=== PATIENT | female | born 1980 ===

== ENCOUNTER 2023-10-15 09:49 | Outpatient (AMB) | payer OTHER, SELFPAY ==
[2023-10-15 09:57] VITALS: BP 100/60; PULSE 66; O2SAT 98; BMI 20.4
--- NOTE | 2023-10-15 09:57 | MHC.PC.OV ---
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 Intake Note: pt is here to est care and for a PE pt says last pap was 5-6 years ago Is last menstrual period known: Yes (pt says 5-6 years ago ) Allergies No Known Allergies Allergy (Verified 11/11/23 02:58) Medication List - Last Reconciled 11/11/23 by Rosaura Saini MD acetaminophen (Acetaminophen Extra Strength) 1,000 mg PO Q6H PRN ibuprofen (IBU-200) 200 mg PO Q6H PRN mirabegron ER 25 mg PO DAILY Tobacco use date assessed: 10/15/23 Dental Screening Dental Screen Date: 10/15/23 Did you have a dental visit in the last 12 months?: No Did you have a dental problem in the last 6 months where you did not have access to dental care?: No Was dental information given to patient?: No HPI 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 She is new to the practice, has history uterine fibroids status post TAHBSO in [facility] in 2018. She is complaining today of urinary leakage specially when she coughs or sneezes or sometimes would get accidents whenever she has to hold her urine for a long time. She is also complaining of recurrent pain and stiffness in lower back and both knees, right more than the left. No history of trauma. [facility] Medical History (Updated 10/15/23 @ 10:54 by Rosaura Saini MD) Mixed stress and urge urinary incontinence Knee pain, bilateral Chronic low back pain History of uterine fibroid Surgical History (Updated 10/15/23 @ 10:37 by Rosaura Saini MD) History of exploratory laparotomy Status post total abdominal hysterectomy and bilateral salpingo-oophorectomy (SHANNON-BSO) Social History Housing: Unknown / Unable to assess Patient Tobacco Use Status: Never used Tobacco e-Cigarette/Vaping Use: Never Used Second Hand Smoke Exposure: No service: No Current occupational status: disabled Cognitive needs: No Hearing needs: No Vision needs: No Questionnaire PHQ-9 Over the last 2 weeks, how often have you been bothered by any of the following problems? 1. Little interest or pleasure in doing things: not at all 2. Feeling down, depressed, or hopeless: not at all 3. Trouble falling or staying asleep, or sleeping too much: not at all 4. Feeling tired or having little energy: not at all 5. Poor appetite or overeating: not at all 6. Feeling bad about yourself - or that you are a failure or have let yourself or your family down: not at all 7. Trouble concentrating on things, such as reading the newspaper or watching television: not at all 8. Moving or speaking so slowly that other people could have noticed. Or the opposite - being so fidgety or restless that you have been moving around a lot more than usual: not at all 9. Thoughts that you would be better off or of hurting yourself in some way: not at all Total score: 0 Depression Screening Interpretation: Negative Depression Screening Done: Yes 10755 - PHQ-9 Billing: Yes Source: Developed by Drs. Juan Jose Higuera, Stefania Yeager, Leighton Villaseñor and colleagues, with an educational myah from [employer]. Thrive Questionnaire Date Thrive assessed: 10/15/23 I am a: Patient What is your living situation today?: I do not have a steady places to live Within the past 12 months, did the food you bought not last and you didn't have the money to get more?: Sometimes True Within the past 12 months, did you worry whether your food would run out before you got money to buy more?: Sometimes True Do you have trouble paying for medicines?: Yes Do you have trouble getting transportation to medical appointments?: Yes Do you have trouble paying your heating and electricity bill?: No Do you have trouble taking care of your child, family member or friend?: No Do you have trouble with day-to-day activities such as bathing, preparing meals, shopping, managing finances, etc.?: Yes Are you currently unemployed and looking for a job?: Yes Are you interested in more education?: No AUDIT C Alcohol Use Questionnaire (AUDIT-C) 1. How often do you have a drink containing alcohol?: Never Total Score: 0 SMITH-7 AMB Questionnaire SMITH-7 Date SMITH - 7 assessed: 10/15/23 Feeling nervous, anxious, or on edge: 0 = Not at all Not being able to stop or control worryin = Not at all Worrying too much about different things: 0 = Not at all Trouble relaxin = Not at all Being so restless that it is hard to sit still: 0 = Not at all Becoming easily annoyed or irritable: 0 = Not at all Feeling afraid as if something awful might happen: 0 = Not at all Total SMITH-7 score (0-4 normal; 5-9 mild; 10-14 moderate; 15-21 severe): 0 Source: Developed by Drs. Juan Jose Higuera, Stefania Yeager, Leighton Villaseñor and colleagues, with an educational myah from [employer]. SMITH-7 Assessment Billing SMITH-7 Assessment Tool: SMITH-7 Assessment 22178 Review of Systems Const Denies body aches, Denies fatigue, Denies fever(s) and Denies weakness Eyes Reports no additional complaints ENT Reports no additional complaints Card Denies chest pain, Denies lightheadedness, Denies palpitations and Denies dyspnea Resp Denies chest congestion, Denies cough, Denies dyspnea and Denies wheezing GI Denies abdominal pain, Denies change in bowel habits and Denies heartburn Denies hematuria, Denies urinary frequency and Denies dysuria Musc Reports as per HPI Skin/Breast Denies breast pain, Denies breast mass, Denies lesions and Denies rash Neuro Denies weakness Psych Reports no additional complaints Endo Denies fatigue, Denies polydipsia, Denies polyuria and Denies palpitations Richard/Lymph Denies easy bruising Aller/Immun Denies seasonal rhinorrhea and Denies wheezing Physical exam (Primary Care) Vital Signs: Last Vital Signs Pulse 66 10/15/23 09:57 BP 100/60 10/15/23 09:57 Pulse Ox 98 10/15/23 09:57 Oxygen Delivery Method Room Air 10/15/23 09:57 BMI result Body Mass Index 20.4 Tobacco/Smoking Status: Tobacco use Status Tobacco use date assessed 10/15/23 10/15/23 10:08 Patient Tobacco Use Status Never used Tobacco 10/15/23 10:08 e-Cigarette/Vaping Use Never Used 10/15/23 10:08 PHQ-9: PHQ-9 Score PHQ-9: Total score 0 10/15/23 10:49 Depression Screening Interpretation: Negative Thrive Assessment: Date of Thrive Assessment Date Thrive assessed 10/15/23 10/15/23 10:21 Const General: comfortable, no acute distress and alert Orientation/consciousness: patient oriented x3 HENMT Ears: external ears normal General nose exam: Normal external nose present and No nasal discharge present Mouth: Normal oral and palatal mucosa present, oropharynx normal and moist mucous membranes Eyes General: appearance normal, both eyes and all related structures Neck Neck: Yes full ROM, Yes no lymphadenopathy and Yes supple Resp Effort & Inspection: normal respiratory effort and able to speak in complete sentences Auscultation: clear to auscultation bilaterally Cardio Rate: regular rate Rhythm: regular rhythm Heart sounds: S1 normal heart sound present and S2 normal heart sound present GI Palpation (GI): Soft to palpation, nontender and no masses Auscultation: normal bowel sounds Back/Spine/Pelvis Back: No back tenderness Skin General skin exam: no rashes or lesions noted Neuro General: patient oriented x3, gait normal, tone normal, moves all extremities, Normal light touch and pain sensation and no focal motor deficits Cranial nerves: Yes CN's II-XII intact bilaterally Cognition (Neuro): normal cognition Extrem General: Yes full ROM, Yes no joint enlargement, Yes no clubbing, cyanosis or edema and Yes no calf tenderness Psych Appearance: grossly normal and well kempt Mental Status: mental status grossly normal Speech and movement: Normal speech and movement present Affect: normal affect Attitude: cooperative Thought process: Normal thought process present Office Procedures Flu Questionnaire Does the patient have a severe egg allergy?: No Does the patient have severe life threatening allergies?: No Does the patient have a fever or illness today?: No Has the patient ever had Guillain-Biloxi Syndrome?: No Has the patient ever had any past reaction to a flu shot?: No Immunizations flu vacc [id number] 6mos up(PF) 60 mcg(15 mcgx4)/0.5 mL IM syringe Performing Provider: Rosaura Saini MD Performing Location: [facility] Administered by: Lucía Penn CMA on 10/15/23 10:19 Dose Route Admin Location Dispensed Lot Number Expiration Date NDC Licensed Guide 0.5 mL IM Right Deltoid 0.5 mL [id number] 05/28/24 06176-013-19 [employer] VIS Given Date VIS Provided VIS Publication Date 10/15/23 Single Vaccine 21 Eligibility Eligibility Date Funding Source Not [facility] Eligible 10/15/23 Private Assessment and Plan Assessment & Plan (1) Mixed stress and urge urinary incontinence: Code(s): N39.46 - Mixed incontinence Plan: Trial of Mirabegron prescription sent, 25 mg per tablet take once a day. Referred to urology for further evaluation (2) Knee pain, bilateral: Code(s): M25.561 - Pain in right knee; M25.562 - Pain in left knee Plan: Ordered x-ray of knees, continue taking Tylenol alternating with ibuprofen as needed every 8 hours pain control. (3) Chronic low back pain: Code(s): M54.50 - Low back pain, unspecified; G89.29 - Other chronic pain Qualifiers: Back pain laterality: bilateral Sciatica laterality: bilateral sciatica Sciatica presence: with sciatica Qualified Code(s): M54.42 - Lumbago with sciatica, left side; M54.41 - Lumbago with sciatica, right side; G89.29 - Other chronic pain Plan: X-ray of lumbar spine ordered with results pending (4) Flu vaccine need: Code(s): Z23 - Encounter for immunization Plan: Flu shot given today Orders: Orders XR lumbar spine 4V min 10/15/23 M25.561 - Pain in right knee, M25.562 - Pain in left knee, M54.50 - Low back pain, unspecified, G89.29 - Other chronic pain XR knee LT 4V 10/15/23 M25.561 - Pain in right knee, M25.562 - Pain in left knee, M54.50 - Low back pain, unspecified, G89.29 - Other chronic pain Influenza [id number] Immunization 10/15/23 Z23 - Encounter for immunization XR knee RT 4V 10/15/23 M25.561 - Pain in right knee, M25.562 - Pain in left knee, M54.50 - Low back pain, unspecified, G89.29 - Other chronic pain Referrals Urology Referral N39.46 - Mixed incontinence Medications: New mirabegron ER 25 mg PO DAILY 30 tabs 0RF N39.46 - Mixed incontinence Coding Level of Care Code New Pt Level 3 (62824) Diagnoses Mixed stress and urge urinary incontinence N39.46 Knee pain, bilateral M25.561; M25.562 Chronic bilateral low back pain with bilateral sciatica M54.42; M54.41; G89.29 Back pain laterality: bilateral Sciatica laterality: bilateral sciatica Sciatica presence: with sciatica Flu vaccine need Z23 Additional Codes SMITH-7 Assessment Billing - SMITH-7 Assessment Tool: SMITH-7 Assessment 41770 ([id number])
== END 2023-10-15 12:01 | disposition home or self-care (01) ==
PROVIDERS: PCP Internal Medicine; Visit Provider Internal Medicine
DX: Z23 Encounter for immunization (principal)
CPT/HCPCS: 90471; 90686; 99203

== ENCOUNTER 2023-10-15 11:07 | Outpatient (REF) | payer OTHER, SELFPAY ==
--- NOTE | ~2023-10-15 | XR_ITS ---
EXAMINATION: XR LUMBAR SPINE XR LEFT KNEE XR RIGHT KNEE CLINICAL INFORMATION: Bilateral knee pain. COMPARISON: None. TECHNIQUE: AP, bilateral oblique and lateral views of the lumbar spine were obtained. AP, lateral and bilateral oblique views of each knee were obtained. FINDINGS: Lumbar spine: There are 5 nonrib-bearing lumbar vertebral bodies. There is normal sagittal alignment on the lateral view. Vertebral body heights and intervertebral disc spaces are maintained. No spondylolisthesis. Possible unilateral spondylolysis at L5. Bilateral knees: Alignment is anatomic. Joint spaces are maintained. No displaced fracture. No significant joint effusion. Right quadriceps and patellar tendon enthesophytes. XR/XR knee RT 4V IMPRESSION: No acute abnormality.
--- NOTE | ~2023-10-15 | XR_ITS ---
EXAMINATION: XR LUMBAR SPINE XR LEFT KNEE XR RIGHT KNEE CLINICAL INFORMATION: Bilateral knee pain. COMPARISON: None. TECHNIQUE: AP, bilateral oblique and lateral views of the lumbar spine were obtained. AP, lateral and bilateral oblique views of each knee were obtained. FINDINGS: Lumbar spine: There are 5 nonrib-bearing lumbar vertebral bodies. There is normal sagittal alignment on the lateral view. Vertebral body heights and intervertebral disc spaces are maintained. No spondylolisthesis. Possible unilateral spondylolysis at L5. Bilateral knees: Alignment is anatomic. Joint spaces are maintained. No displaced fracture. No significant joint effusion. Right quadriceps and patellar tendon enthesophytes. XR/XR lumbar spine 4V min IMPRESSION: No acute abnormality.
--- NOTE | ~2023-10-15 | XR_ITS ---
EXAMINATION: XR LUMBAR SPINE XR LEFT KNEE XR RIGHT KNEE CLINICAL INFORMATION: Bilateral knee pain. COMPARISON: None. TECHNIQUE: AP, bilateral oblique and lateral views of the lumbar spine were obtained. AP, lateral and bilateral oblique views of each knee were obtained. FINDINGS: Lumbar spine: There are 5 nonrib-bearing lumbar vertebral bodies. There is normal sagittal alignment on the lateral view. Vertebral body heights and intervertebral disc spaces are maintained. No spondylolisthesis. Possible unilateral spondylolysis at L5. Bilateral knees: Alignment is anatomic. Joint spaces are maintained. No displaced fracture. No significant joint effusion. Right quadriceps and patellar tendon enthesophytes. XR/XR knee LT 4V IMPRESSION: No acute abnormality.
== END 2023-10-15 11:08 | disposition home or self-care (01) ==
LOC: HO.HMGCX 11:07
PROVIDERS: PCP Internal Medicine; Visit Provider Internal Medicine
DX: M25.561 Pain in right knee (principal); M25.562 Pain in left knee; M54.50 Low back pain, unspecified; G89.29 Other chronic pain
CPT/HCPCS: 72110; 73564

== ENCOUNTER 2023-12-28 10:25 | Outpatient (AMB) | payer OTHER, SELFPAY ==
--- NOTE | 2023-12-28 10:30 | A.OFFVIS_ITS ---
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 Intake Note: New Patient presents for initial visit urinary incontinence Urology Medications: Myrbetriq Blood Thinner: none PVR: 0ml's Habilitation Training Specialist Required: Yes Habilitation Training Specialist Name: ALISSA EVANS Accompanied by: Self / Same As Patient Allergies No Known Allergies Allergy (Verified 12/28/23 21:08) Medication List - Last Reconciled 12/28/23 by HUNTER Magana incontinence pad, liner, disp As directed 3 daily/ 90 per month mirabegron ER (Myrbetriq) 25 mg PO DAILY 30 days underpads As directed 2 per night/ 60 per month HPI HPI Comments 2 History of Present Illness Details Jesica is a very pleasant 43-year-old Welsh-speaking female patient of Dr. Saini. She presents to the office today as a new patient for mixed urinary incontinence. In discussion with the patient today she reports having had a total hysterectomy in [place] many years ago (2007) and has since been experiencing mixed urinary incontinence. When asked she reports having had 2 vaginal deliveries of average size newborns. She reports one labor to have been average length and the other labor to have been a long labor. She reports having followed up with her PCP regarding her ongoing lower urinary tract symptoms at which time recommendations were made for Urology follow-up. She otherwise denies hematuria, dysuria, foul smelling urine, changes to urinary stream, flank pain, fever, and or chills. She is requesting scripts for her incontinent pads to [facility]. Discussed at length potential causes for lower urinary tract symptoms patient is experiencing. Discussed pelvic floor therapy at length. Discussed near future in office cystoscopy and or urodynamics for further assessment evaluation. Discussed obtaining retroperitoneal ultrasound for further assessment evaluation. In office urinalysis results reviewed with the patient today. PVR 0ml's. [facility] Medical History Mixed stress and urge urinary incontinence Knee pain, bilateral Chronic low back pain History of uterine fibroid Surgical History History of exploratory laparotomy Status post total abdominal hysterectomy and bilateral salpingo-oophorectomy (SHANNON-BSO) Social History Housing: Unknown / Unable to assess Patient Tobacco Use Status: Never used Tobacco e-Cigarette/Vaping Use: Never Used Second Hand Smoke Exposure: No service: No Current occupational status: disabled Cognitive needs: No Hearing needs: No Vision needs: No Review of Systems Const Reports as per HPI Eyes Reports no additional complaints ENT Reports no additional complaints Card Reports no additional complaints Resp Reports no additional complaints GI Reports no additional complaints Reports as per HPI Musc Reports as per HPI Neuro Reports no additional complaints Endo Reports no additional complaints Richard/Lymph Reports no additional complaints Aller/Immun Reports no additional complaints Physical Exam Const General: cooperative, comfortable, no acute distress, well developed, alert and awake Orientation/consciousness: patient oriented x3 HEENT Head: Yes normal to inspection, Yes normocephalic and Yes atraumatic Ears: hearing grossly normal bilaterally Eyes General: appearance normal, both eyes and all related structures Neck Neck: Yes normal visual inspection and Yes trachea midline Chest Chest palpation & inspection: normal inspection of the chest Resp Effort & Inspection: normal respiratory effort and able to speak in complete sentences Cardio Rate: regular rate GI Inspection: Yes normal to inspection General: Yes no CVA tenderness Back/Spine/Pelvis Back: no CVA tenderness Skin General skin exam: no rashes or lesions noted Neuro General: patient oriented x3 Extrem Other: incorrect alignment of bilateral lower extremities noted Psych Appearance: grossly normal and well kempt Mental Status: mental status grossly normal Speech and movement: Normal speech and movement present and Clear speech present Affect: normal affect Attitude: cooperative Thought process: Normal thought process present Thought content: Normal thought content present Insight: Fair insight present (Psych) Judgement: Fair judgement present (Psych) Office Procedures Post Void Residual Post Residual Void Post Void Residual (PVR): 0 [id number] Void Residual by ultrasound Results AMB Urinalysis, Automated UA Leukoctes 0 [place]/uL Last Edit by [employer] Arianna on 12/28/23 10:50 UA Nitrite Negative Last Edit by nuPSYScharline Keller on 12/28/23 10:50 UA Urobilinogen 0.2 mg/dL Last Edit by Schedule[employer]calin Keller on 12/28/23 10:50 UA Protein 0 mg/dL Last Edit by ScheduleSoftcalin Keller on 12/28/23 10:50 UA pH 5.5 Last Edit by ScheduleSoftcalin Keller on 12/28/23 10:50 UA Blood 25 Saroj/uL Last Edit by Papa Keller on 12/28/23 10:50 UA Specific [place] 1.030 Last Edit by Papa Keller on 12/28/23 10:50 UA Ketone Negative Last Edit by Papa Keller on 12/28/23 10:50 UA Bilirubin 0 mg/dL Last Edit by Papa Keller on 12/28/23 10:50 UA Glucose 0 mg/dL Last Edit by Papa Keller on 12/28/23 10:50 Results Reviewed Results Reviewed: Laboratory Last Values Urine pH (Auto) 5.5 12/28/23 10:34 Specific [place] (Auto) 1.030 12/28/23 10:34 Urine Protein (Auto) 0 mg/dL 12/28/23 10:34 Glucose (UA)(Auto) 0 mg/dL 12/28/23 10:34 Urine Ketones (Auto) Negative 12/28/23 10:34 Urine Blood (Auto) 25 Saroj/uL 12/28/23 10:34 Urine Nitrite (Auto) Negative 12/28/23 10:34 Urine Bilirubin (Auto) 0 mg/dL 12/28/23 10:34 Urine Urobilinogen (Auto) 0.2 mg/dL 12/28/23 10:34 Leukocyte Esterase (Auto) 0 [place]/uL 12/28/23 10:34 Assessment & Plan Assessment & Plan (1) Mixed stress and urge urinary incontinence: Code(s): N39.46 - Mixed incontinence Plan In office urinalysis results reviewed with the patient today; as noted above. PVR 0 mL. Discussed at length potential causes for mixed urinary incontinence. Will obtain retroperitoneal ultrasound for further assessment evaluation. Discussed pelvic floor therapy at length. Discussed bladder triggers/irritants. Start Myrbetriq as discussed and prescribed. Discussed possible near future in office cystoscopy and or urodynamics for further assessment evaluation. Prescriptions provided to [facility] as requested. Follow-up in 6 weeks with imaging to be completed prior; or sooner with any issues, concerns, and or questions. Orders: Orders AMB Post Void Residual by ultrasound Today N39.46 - Mixed incontinence US retroperitoneal comp Today N39.46 - Mixed incontinence AMB Urinalysis Automated Today Z13.9 - Encounter for screening, unspecified Medications: New mirabegron ER (Myrbetriq) 25 mg PO DAILY 30 days 30 tabs 1RF N30.10 - Interstitial cystitis (chronic) without hematuria, N32.81 - Overactive bladder, R35.1 - Nocturia, R39.15 - Urgency of urination Coding Level of Care Code New Pt Level 4 (43054) Diagnoses Mixed stress and urge urinary incontinence N39.46 CPT Codes Post Residual Void - PVR CPT Code: 34082-Qwhs Void Residual by ultrasound ([id number])
== END 2023-12-28 11:08 | disposition home or self-care (01) ==
PROVIDERS: PCP Internal Medicine; Visit Provider Nurse Practitioner Family
DX: N39.46 Mixed incontinence (principal)
CPT/HCPCS: 99204

== ENCOUNTER → 2023-12-28 10:25 | Outpatient (BNVA) | payer OTHER, SELFPAY | PROVIDERS: PCP Internal Medicine; Visit Provider Nurse Practitioner Family | DX: N39.46 Mixed incontinence (principal) | CPT/HCPCS: 51798; 81003; 99202 ==

== ENCOUNTER 2024-01-04 11:19 | Outpatient (AMB) | payer OTHER, SELFPAY ==
[2024-01-04 12:01] VITALS: BP 114/82; PULSE 82; O2SAT 100; BMI 20.8
--- NOTE | 2024-01-04 12:01 | A.OFFPC_ITS ---
Vital Signs 01/04/24 12:01 Height 5 ft 6 in Weight 129 lb BMI 20.8 BP 114/82 Blood Pressure Location Rt brachial Position Sitting Pulse 82 Pulse Source Pulse Oximeter Pulse Oximetry (%) 100 Oxygen Delivery Method Room Air Intake Visit Reasons: 2 month fu Intake Note: Pt is here today for 2 month f/u. Allergies No Known Allergies Allergy (Verified 01/04/24 12:22) Medication List - Last Reconciled 01/04/24 by Rosaura Saini MD acetaminophen (Tylenol Extra Strength) 500 mg PO DAILY PRN incontinence pad, liner, disp As directed 3 daily/ 90 per month mirabegron ER 25 mg PO DAILY underpads As directed 2 per night/ 60 per month Tobacco use date assessed: 01/04/24 Dental Screening Dental Screen Date: 01/04/24 Did you have a dental visit in the last 12 months?: No Did you have a dental problem in the last 6 months where you did not have access to dental care?: No Was dental information given to patient?: Patient has dentist HPI 2 month fu HPI0 Details 43-year-old lady here today, for follow- up. Has intermittent joint pains mainly in knees and right hip, takes Tylenol arthritis 500 mg once a day and has been applying an arthritis cream on right hip which affords relief. She has been seen by Urology for mixed stress and urge incontinence and has been prescribed mirabegron 25 mg per tablet which she just started taking. Requesting referral for a screening mammogram [facility] Medical History Right hip pain Mixed stress and urge urinary incontinence Knee pain, bilateral Chronic low back pain History of uterine fibroid Surgical History History of exploratory laparotomy Status post total abdominal hysterectomy and bilateral salpingo-oophorectomy ([facility]-BSO) Social History Housing: Unknown / Unable to assess Patient Tobacco Use Status: Never used Tobacco e-Cigarette/Vaping Use: Never Used Second Hand Smoke Exposure: No service: No Current occupational status: disabled Cognitive needs: No Hearing needs: No Vision needs: No Questionnaire PHQ-9 Over the last 2 weeks, how often have you been bothered by any of the following problems? Depression Screening Interpretation: Negative Depression Screening Done: Yes Source: Developed by Drs. Juan Jose Higuera, Leighton Morris and colleagues, with an educational myah from [employer]. Thrive Questionnaire Date Thrive assessed: 10/15/23 AUDIT C Alcohol Use Questionnaire (AUDIT-C) 1. How often do you have a drink containing alcohol?: Never 3. How often do you have six or more drinks on one occasion?: Never Total Score: 0 Score Reviewed/Action Taken: Yes SMITH-7 AMB Questionnaire SMITH-7 Date SMITH - 7 assessed: 10/15/23 Source: Developed by Drs. Juan Jose Higuera, Leighton Morris and colleagues, with an educational myah from [employer]. Review of Systems Const Reports no additional complaints ENT Reports no additional complaints Card Reports no additional complaints Resp Reports no additional complaints GI Reports no additional complaints Reports as per HPI Musc Reports as per HPI Skin/Breast Denies breast pain and Denies breast mass Neuro Reports no additional complaints Endo Reports no additional complaints Richard/Lymph Reports no additional complaints Aller/Immun Reports no additional complaints Physical exam (Primary Care) Vital Signs: Last Vital Signs Pulse 82 01/04/24 12:01 BP 114/82 01/04/24 12:01 Pulse Ox 100 01/04/24 12:01 Oxygen Delivery Method Room Air 01/04/24 12:01 BMI result Body Mass Index 20.8 Tobacco/Smoking Status: Tobacco use Status Tobacco use date assessed 01/04/24 01/04/24 12:04 Patient Tobacco Use Status Never used Tobacco 01/04/24 12:04 e-Cigarette/Vaping Use Never Used 01/04/24 12:04 Depression Screening Interpretation: Negative Thrive Assessment: Date of Thrive Assessment Date Thrive assessed 10/15/23 01/04/24 12:04 Const General: comfortable, no acute distress and alert Orientation/consciousness: patient oriented x3 HENMT Ears: external ears normal General nose exam: Normal external nose present and No nasal discharge present Mouth: Normal oral and palatal mucosa present, oropharynx normal and moist mucous membranes Neck Neck: Yes full ROM, Yes no lymphadenopathy and Yes supple Chest Breast/axilla palpation: normal palpation of the breasts Resp Effort & Inspection: normal respiratory effort and able to speak in complete sentences Auscultation: clear to auscultation bilaterally Cardio Rate: regular rate Rhythm: regular rhythm Heart sounds: S1 normal heart sound present and S2 normal heart sound present GI Palpation (GI): Soft to palpation, nontender and no masses Auscultation: normal bowel sounds Back/Spine/Pelvis Back: No back tenderness Neuro General: patient oriented x3, gait normal, tone normal, moves all extremities, Normal light touch and pain sensation and no focal motor deficits Cranial nerves: Yes CN's II-XII intact bilaterally Cognition (Neuro): normal cognition Extrem General: Yes full ROM, Yes no joint enlargement, Yes no clubbing, cyanosis or edema and Yes no calf tenderness Immunizations Boostrix Tdap 2.5 Lf unit-8 mcg-5 Lf/0.5 mL intramuscular syringe Performing Provider: Rosaura Saini MD Performing Location: [facility] Administered by: Laisha Weiss CMA on 01/04/24 12:35 Dose Route Admin Location Dispensed Lot Number Expiration Date NDC [employer] 0.5 mL IM Left Deltoid 0.5 mL [id number] 03/24/26 [id number] [employer] VIS Given Date VIS Provided VIS Publication Date 01/04/24 Single Vaccine 21 Eligibility Eligibility Date Funding Source Not [facility] Eligible 01/04/24 Private Assessment and Plan Assessment & Plan (1) Knee pain, bilateral: Code(s): M25.561 - Pain in right knee; M25.562 - Pain in left knee Qualifiers: Chronicity: chronic Qualified Code(s): M25.561 - Pain in right knee; M25.562 - Pain in left knee; G89.29 - Other chronic pain Plan: Continue taking Tylenol extra strength 500 mg per tablet 1 tablet once a day as needed for joint pain. Counseled to do regular exercise, advised healthy eating habits to prevent weight gain. (2) Mixed stress and urge urinary incontinence: Code(s): N39.46 - Mixed incontinence Plan: Currently on mirabegron 25 mg per tablet taken once a day, recently started on it by Urology (3) Right hip pain: Code(s): M25.551 - Pain in right hip Plan: Takes Tylenol arthritis 500 mg once a day as needed for joint pain which has been helping (4) Need for Tdap vaccination: Code(s): Z23 - Encounter for immunization Plan: Tdap give (5) Breast cancer screening: Code(s): Z12.39 - Encounter for other screening for malignant neoplasm of breast Plan: Screening mammogram ordered Orders: Orders TDaP Immunization Today Z23 - Encounter for immunization MM tomosynthesis screening BI Today Z12.31 - Encounter for screening mammogram for malignant neoplasm of breast Medications: New Boostrix Tdap (diphth,pertus(acell),tetanus) 0.5 mL IM ONCE 0.5 mL 0RF NS Z23 - Encounter for immunization Coding Level of Care Code Est Pt Level 3 (65021) Diagnoses Chronic pain of both knees M25.561; M25.562; G89.29 Chronicity: chronic Mixed stress and urge urinary incontinence N39.46 Right hip pain M25.551 Need for Tdap vaccination Z23 Breast cancer screening Z12.39
== END 2024-01-04 13:27 | disposition home or self-care (01) ==
PROVIDERS: PCP Internal Medicine; Visit Provider Internal Medicine
DX: M25.561 Pain in right knee (principal); M25.562 Pain in left knee; G89.29 Other chronic pain; N39.46 Mixed incontinence; M25.551 Pain in right hip; Z23 Encounter for immunization; Z12.39 Encounter for other screening for malignant neoplasm of breast
CPT/HCPCS: 90471; 90715; 99213

== ENCOUNTER → 2024-02-24 11:00 | Outpatient (BNV) | payer OTHER, SELFPAY | PROVIDERS: PCP Internal Medicine; Visit Provider Radiology Diagnostic Radiology | DX: Z12.31 Encounter for screening mammogram for malignant neoplasm of breast (principal) | CPT/HCPCS: 77063; 77067 ==

== ENCOUNTER 2024-02-24 11:01 | Outpatient (REF) | payer OTHER, SELFPAY ==
--- NOTE | ~2024-02-24 | MM_ITS ---
EXAMINATION: MM SCREENING DIGITAL BREAST TOMOSYNTHESIS, BILATERAL CLINICAL INFORMATION: Screening. Asymptomatic. COMPARISON: Mammography: This is a baseline mammogram. TECHNIQUE: Digital breast tomosynthesis is performed in both the craniocaudal and mediolateral oblique views along with computer-aided detection (CAD). Synthesized 2D images are generated from the tomosynthesis. FINDINGS: The breasts are heterogeneously dense, which may obscure small masses (ACR BI-RADS breast composition Category c). There are no significant masses, abnormal calcifications, or other abnormalities. MM/MM tomosynthesis screening BI IMPRESSION: No mammographic evidence of malignancy. ASSESSMENT: BI-RADS BI-RADS 1 - Negative RECOMMENDATION: Routine annual mammography screening. 1 year F/U This examination should not preclude the clinical evaluation of a suspicious palpable abnormality. This patient's information was entered into a reminder system with a target due date for their next mammogram.
== END 2024-02-24 11:02 | disposition home or self-care (01) ==
LOC: HO.MAMMO 11:01
PROVIDERS: PCP Internal Medicine; Visit Provider Internal Medicine
DX: Z12.31 Encounter for screening mammogram for malignant neoplasm of breast (principal)
CPT/HCPCS: 77063; 77067